=== PATIENT | male | born 1990 | race Caucasian/White ===

== ENCOUNTER 2023-05-10 15:27 | Emergency (ER) | payer MEDICAID ==
[2023-05-10] MEDS: Morphine 4 MG/ML Syringe IM STA (16:49)
[2023-05-10] MEDS: Ondansetron 4 MG Tab.DIS PO STA (16:50)
== END 2023-05-10 18:30 | disposition home or self-care (01) ==
LOC: MW.ED 15:27
DX: S82.031A Displaced transverse fracture of right patella, initial encounter for closed fracture (principal); Z75.8 Other problems related to medical facilities and other health care; Z79.899 Other long term (current) drug therapy; W18.40XA Slipping, tripping and stumbling without falling, unspecified, initial encounter; Y93.89 Activity, other specified
CPT/HCPCS: 73501; 73552; 73560; 96372; 99283; A9270; J2270

== ENCOUNTER 2024-03-06 21:58 | Emergency (ER) | payer MEDICAID ==
[2024-03-06 22:37] LABS: BASOPHILS ABSOLUTE AUTO 0.09 K/uL (0.00-0.20); BASOPHILS PERCENT AUTO 1.4 % (0.0-1.0); EOSINOPHILS ABSOLUTE AUTO 0.21 K/uL (0.00-0.45); EOSINOPHILS PERCENT AUTO 3.3 % (0.0-6.0); HEMATOCRIT 48.1 % (42.0-52.0); HEMOGLOBIN 16.8 g/dL (14.0-18.0); IMMATURE GRAN ABSOLUTE AUTO 0.15 K/uL (0.00-0.05); IMMATURE GRAN PERCENT AUTO 2.3 % (0.0-0.4); LYMPHOCYTES ABSOLUTE AUTO 1.89 K/uL (1.00-4.80); LYMPHOCYTES PERCENT AUTO 29.5 % (24.0-44.0); MEAN CORPUSCULAR HEMOGLOBIN 30.2 pg (28.0-32.0); MEAN CORPUSCULAR HGB CONC 34.9 g/dL (32.0-36.0); MEAN CORPUSCULAR VOLUME 86.5 fL (83.0-99.0); MEAN PLATELET VOLUME 9.4 fL (9.4-12.4); MONOCYTES ABSOLUTE AUTO 0.71 K/uL (0.00-0.80); MONOCYTES PERCENT AUTO 11.1 % (0.0-8.0); NEUTROPHILS ABSOLUTE AUTO 3.35 K/uL (1.80-7.70); NEUTROPHILS PERCENT AUTO 52.4 % (41.0-71.0); PLATELET COUNT,PLT 174 K/uL (150-400); RED BLOOD CELL COUNT 5.56 M/uL (4.52-5.90)
[2024-03-06 22:55] LABS: BLOOD UREA NITROGEN,BUN 16 mg/dL (7.0-18.0); CALCIUM 9.4 mg/dL (8.5-10.1); CARBON DIOXIDE,CO2 27.6 mmol/L (21.0-32.0); CHLORIDE,CL 103 mmol/L (98-107); CREATININE 0.8 mg/dL (0.8-1.3); GLUCOSE RANDOM 121 mg/dL (74-106); SODIUM,NA 139 mmol/L (136-148)
[2024-03-06 22:59] LABS: ESTIMATED GFR 118 mL/min (>60)
== END 2024-03-06 23:25 | disposition home or self-care (01) ==
LOC: MW.ED 21:58
DX: G40.909 Epilepsy, unspecified, not intractable, without status epilepticus (principal); Z79.899 Other long term (current) drug therapy
CPT/HCPCS: 36415; 80048; 80164; 85025; 99283; 99284

== ENCOUNTER 2024-10-12 04:32 | Emergency (ER) | payer MEDICAID ==
[2024-10-12] MEDS ORDERED: Sodium Chloride 0.9% 10 ML Syringe FLUSH PRN (04:54)
[2024-10-12] MEDS ORDERED: Sodium Chloride 0.9% 2.5 ML Syringe FLUSH PRN (04:54)
[2024-10-12 05:01] LABS: BASOPHILS ABSOLUTE AUTO 0.08 K/uL (0.00-0.20); BASOPHILS PERCENT AUTO 1.1 % (0.0-1.0); EOSINOPHILS ABSOLUTE AUTO 0.26 K/uL (0.00-0.45); EOSINOPHILS PERCENT AUTO 3.6 % (0.0-6.0); IMMATURE GRAN ABSOLUTE AUTO 0.10 K/uL (0.00-0.05); IMMATURE GRAN PERCENT AUTO 1.4 % (0.0-0.4); LYMPHOCYTES ABSOLUTE AUTO 2.86 K/uL (1.00-4.80); LYMPHOCYTES PERCENT AUTO 39.8 % (24.0-44.0); MEAN PLATELET VOLUME 9.3 fL (9.4-12.4); MONOCYTES ABSOLUTE AUTO 0.70 K/uL (0.00-0.80); MONOCYTES PERCENT AUTO 9.7 % (0.0-8.0); NEUTROPHILS ABSOLUTE AUTO 3.18 K/uL (1.80-7.70); NEUTROPHILS PERCENT AUTO 44.4 % (41.0-71.0); NRBC ABSOLUTE 0.00 K/uL (0.00-0.02); NRBC PERCENT 0.0 /100WBC (0.0-0.2); PLATELET COUNT,PLT 222 K/uL (150-400); RED BLOOD CELL COUNT 5.67 M/uL (4.52-5.90); WHITE BLOOD CELL COUNT,WBC 7.18 K/uL (3.9-11.3)
[2024-10-12 05:21] LABS: A/G RATIO 1.2 (0.9-1.6); ALANINE AMINOTRANSFERASE,ALT 131 IU/L (14-63); ASPARTATE AMNIOTRANSFERASE,AST 59 IU/L (15-37); BILIRUBIN TOTAL 0.5 mg/dL (0.2-1.0); BLOOD UREA NITROGEN,BUN 13 mg/dL (7.0-18.0); CARBON DIOXIDE,CO2 22.0 mmol/L (21.0-32.0); CHLORIDE,CL 105 mmol/L (98-107); CREATININE 0.9 mg/dL (0.8-1.3); GLUCOSE RANDOM 96 mg/dL (74-106); POTASSIUM,K 4.1 mmol/L (3.5-5.1); PROTEIN TOTAL,TP 7.3 g/dL (6.4-8.2); SODIUM,NA 140 mmol/L (136-148); TSH ULTRASENSITIVE 6.82 uIU/mL (0.36-3.74)
[2024-10-12 05:22] LABS: ESTIMATED GFR 114 mL/min (>60); ETHANOL BLOOD MEDICAL < 3.0 mg/dL
[2024-10-12 05:44] LABS: T4 FREE 0.99 ng/dL (0.76-1.46)
== END 2024-10-12 06:51 | disposition home or self-care (01) ==
LOC: MW.ED 04:32
DX: R56.9 Unspecified convulsions (principal); Z79.899 Other long term (current) drug therapy
CPT/HCPCS: 36415; 70450; 71045; 72125; 80053; 80307; 83735; 84439; 84443; 84484; 85025; 93005; 96360; 99285; J7030; 93010; 99283